=== PATIENT | female | born 1955 | race Caucasian/White ===

== ENCOUNTER 2016-09-15 12:14 | Day surgery (SDC) | payer OTHER ==
[~2016-09-15] VITALS: Ht 146.1 cm; Wt 51.1 kg
[2016-09-15] MEDS ORDERED: no meds (13:36)
[2016-09-15 13:45] VITALS: BP 131/75; PULSE 56; RESP 18
[2016-09-15] MEDS ORDERED: LIDOCAINE 2% (SDV) 5 ML INJ ONE (14:47)
[2016-09-15] MEDS ORDERED: PROPOFOL 40 ML ONE (14:47)
--- NOTE | 2016-09-16 09:00 | GILP ---
DATE OF PROCEDURE: 09/15/2016 PROCEDURE: Colonoscopy to cecum. BRIEF HISTORY AND INDICATIONS: The patient here for colorectal cancer screening. PREMEDICATION: Monitored anesthesia care by anesthesiologist. SURGEON: José Miguel Castillo MD. INSTRUMENT USED: Olympus colonoscope. PREPARATION: Adequate. TECHNIQUE: After informed consent, with the patient/relatives understanding the procedure, its indic ations potential risks and complications, including but not limited to: allergic reaction, bleeding, perforation, infection, missed lesions and after all pertinent questions were answered to the patie nt's satisfaction, the patient/relatives signed the witnessed informed consent. Following this, premedication was administered slowly IV push by under careful cardiovascular and re spiratory monitoring with pulse oximetry, automatic blood pressure and ekg monitor. Once the sedativ e effect was achieved, the patient was placed in the left lateral decubitus position, digital rectal examination was performed. The colonoscope was then introduced and advanced under visual control th roughout all segments of the colon including: the rectum, sigmoid, descending colon, splenic flexure , transverse colon, hepatic flexure, ascending colon and finally reaching the cecum which was clearl y identified by transillumination, finger indentation and the ileocecal valve. Careful examination o f the mucosa of the lower gastrointestinal tract both on insertion as well as withdrawal of the inst rument disclosed the following findings: Rectal Examination: No evidence of perirectal disease, no masses. Colonic Mucosa: The colonic mucosa entirely unremarkable throughout. The ileocecal valve was clearl y identified and appears unremarkable. The instrument was withdrawn reexamining mucosa in detail. No additional abnormalities are noted with exception of moderate sized internal hemorrhoids. The instrument was then withdrawn, the patient tolerated the procedure well and was transferred out of the [facility]oscopy Suite awake and in good condition to continue recovery under observation. IMPRESSION: Moderate sized internal hemorrhoids, otherwise normal colonoscopy to cecum. PLAN: The patient will be followed up as an outpatient. Annual Hemoccult stool testing is recommen ded and screening colonoscopy in 10 years is recommended as well. Dictated By: JOSÉ MIGUEL CASTILLO MS/DEBBY Conf#: [id number] DID#: [id number]
== END 2016-09-15 15:54 | disposition home or self-care (01) ==
LOC: GIL 12:14
PROVIDERS: ATTEND Internal Medicine Gastroenterology
DX: Z12.11 Encounter for screening for malignant neoplasm of colon (principal); K64.4 Residual hemorrhoidal skin tags